=== PATIENT | male | born 1925 | race Caucasian/White ===

== ENCOUNTER → 2016-06-11 | Outpatient (CLI) | payer MEDICARE | END | disposition home or self-care (01) | LOC: PCVCIMAG 13:30 | PROVIDERS: ATTEND Nuclear Medicine Nuclear Cardiology | DX: I65.23 Occlusion and stenosis of bilateral carotid arteries (principal); I70.213 Atherosclerosis of native arteries of extremities with intermittent claudication, bilateral legs; E78.00 Pure hypercholesterolemia, unspecified; I48.92 Unspecified atrial flutter; E11.9 Type 2 diabetes mellitus without complications; I10 Essential (primary) hypertension; I25.10 Atherosclerotic heart disease of native coronary artery without angina pectoris; J44.9 Chronic obstructive pulmonary disease, unspecified | CPT/HCPCS: 80061; 93005; 93880; 93925; G0463 ==

== ENCOUNTER → 2017-01-11 | Outpatient (CLI) | payer MEDICARE ==
--- NOTE | 2017-01-11 15:02 | PCVCIMAG ---
EXAM: BILATERAL LOWER EXTREMITY ARTERIAL DUPLEX INDICATION: Peripheral Arterial Disease. Leg pain. FINDINGS: Right Leg: Satisfactory arterial waveforms in the common femoral and profunda femoral arteries. 40-50% stenosis mid right superficial femoral artery within the midportion of prior stent not felt to be critically flow-limiting. The popliteal artery is patent. Occlusion throughout the anterior tibial artery. The peroneal and posterior tibial arteries show adequate patency. Left Leg: Satisfactory arterial waveforms in the common femoral and profunda femoral artery. 40-50% restenosis mid superficial femoral artery with the midportion prior stent. Increased systolic velocity mid popliteal artery of 326 cm/s consistent with 70% stenosis as was seen on prior angiogram. Occlusion throughout the anterior tibial artery. The peroneal artery and posterior tibial artery are patent. 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 40-50% restenosis mid left superficial femoral artery within prior stent. 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 LOC:[id number]
== END | disposition home or self-care (01) ==
LOC: PCVCIMAG 13:33
PROVIDERS: ATTEND Internal Medicine Cardiovascular Disease
DX: I73.9 Peripheral vascular disease, unspecified (principal); I77.9 Disorder of arteries and arterioles, unspecified; M79.605 Pain in left leg; M79.604 Pain in right leg; I25.10 Atherosclerotic heart disease of native coronary artery without angina pectoris; I48.92 Unspecified atrial flutter; J44.9 Chronic obstructive pulmonary disease, unspecified; E11.9 Type 2 diabetes mellitus without complications; Z87.891 Personal history of nicotine dependence; Z79.899 Other long term (current) drug therapy
CPT/HCPCS: 93925; G0463